=== PATIENT | male | born 1995 | race Two or more races ===

== ENCOUNTER → 2018-06-14 | Outpatient (CLI) | payer OTHER ==
[~2018-06-14] MED LIST: HYDR-317 PO; KET10 PO
--- NOTE | 2018-06-17 10:08 | RADIOLOGY IMAGING REPORT ---
FACILITY: [facility] PATIENT NAME: JOHNY CADET : [id number] MR: [id number] V: [id number] EXAM DATE: [id number] ORDERING PHYSICIAN: KYRA BOWIE TECHNOLOGIST: Flex Sanchez RDMS, [facility] PROCEDURE:US LEFT BREAST COMPLETE COMPARISON:Right breast Ultrasound 02/05/15 and Today's diagnostic mammogram. INDICATIONS:LEFT BREAST ENLARGEMENT FINDINGS: Imaging of the Left breast was performed in the periareolar region demonstrating no sonographic abnormality. Comparison views of the Right breast likewise revealed no abnormality. When compared to the prior Right breast Ultrasound there have been previously noted lobular hypoechoic masses no longer seen. Today's mammogram revealed decreased tissue in the Right retroareolar region when compared to the prior mammogram although the Left breast appeared stable. DIAGNOSTIC CATEGORY 2--BENIGN FINDING. RECOMMENDATIONS: CLINICAL EVALUATION. IMPRESSION: BIRADS 2: Benign finding. No sonographic abnormality of the Left breast is seen. Dictated by: Anna Garcia M.D. on 06/14/2018 at 14:08 Transcribed by: MADDY on 06/14/2018 at 14:42 Approved by: Anna Garcia M.D. on 06/17/2018 at 10:07 [facility]
--- NOTE | 2018-06-17 10:08 | RADIOLOGY IMAGING REPORT ---
FACILITY: [facility] PATIENT NAME: JOHNY CADET : [id number] MR: [id number] V: [id number] EXAM DATE: [id number] ORDERING PHYSICIAN: KYRA BOWIE TECHNOLOGIST: Brittany Coelho PROCEDURE:BILATERAL DIAGNOSTIC DIGITAL MAMMOGRAM WITH CAD ASSISTED INTERPRETATION COMPARISON:Today's Left breast Ultrasound and Prior diagnostic mammogram 02/05/15. INDICATIONS:LT BREAST MASS, ENLARGEMENT FINDINGS: When compared to the prior mammogram there is much less retroareolar Right breast tissue. The patient does give a history of interval surgery. There is a small amount of scattered fibroglandular tissue seen in the Left retroareolar breast that appears stable when compared to the prior study. No malignant calcifications are identified in either breast. Today's Left breast Ultrasound revealed no sonographic abnormality. DIAGNOSTIC CATEGORY 2--BENIGN FINDING. RECOMMENDATIONS: CLINICAL EVALUATION. IMPRESSION: BIRADS 2: Benign finding. No significant abnormality is identified. Dictated by: Anna Garcia M.D. on 06/14/2018 at 14:17 Transcribed by: MADDY on 06/14/2018 at 14:27 Approved by: Anna Garcia M.D. on 06/17/2018 at 10:07 [facility]
== END ==
LOC: US 01:20
PROVIDERS: ATTEND Family Medicine
DX: N62 Hypertrophy of breast (principal); N63.20 Unspecified lump in the left breast, unspecified quadrant
CPT/HCPCS: 77062; 77066